=== PATIENT | female | born 1990 | race Asian ===

== ENCOUNTER 2021-11-03 07:07 | Inpatient (IN) ==
--- NOTE | 2021-10-31 14:50 | Anesthesiology Consultation ---
Date of Service October 31, 2021 Assessment & Plan (1) Encounter for pre-operative examination: - check coags am DOS. To anesthesiologist discretion am DOS if additional testing is needed. - COVID screening: Per manager printing on 10/31/2021: Travel screen negative, no kno wn COVID-19 positive contacts or current COVID-19 related symptoms in past 2 weeks. Patient vaccinated. Surgeon arranging preop COVID testing, scheduled 11/01/2021. Awaiting results. Chart Review Chart Review: Acceptable Risk for Surgery and Patient NOT seen in Pre Admission Testing History Surgery Operation Date: 11/03/21 08:50 Proposed Procedures p Section in LD (Delivery of Baby through Abdominal Incision) - Favian Arias MD Height/Weight Height: 5 ft 4.96 in Weight: 85.275 kg Allergies Allergy/AdvReac Type Severity Reaction Status Date / Time No Known Drug Allergies Allergy Unknown Verified 10/31/21 14:08 Medications Home Medications Medication Instructions Recorded Confirmed Last Taken prenat.vits,kartik,rzz-htou-sjqfx 1 tab PO QAM 03/13/21 10/31/21 Unknown omega-3 fatty acids [Fish Oil] 1 tab PO QAM 04/25/21 10/31/21 Unknown calcium carbonate [Tums] 2 tab PO HS 07/03/21 10/31/21 Unknown lactobacillus combination no.4 3 3,000 mmu cells PO QAM 10/31/21 10/31/21 Unknown billion cell capsule (Probiotic) Past Medical History Medical History Fibroid uterus GERD (gastroesophageal reflux disease) Heart palpitations ON OCC-NO CARDIOLOGY Varicella vaccination Past Family History Family History Father Dyslipidemia Hypertension Mother Diabetes Other No family history of allergies No family history of bleeding disorder Denies family history of Ovarian cancer Prostate cancer Hearing loss Heart disease Breast cancer Cancer Stroke Asthma Past Surgical History Surgical History H/O unilateral salpingectomy Social History Smoking Status: Never smoker Do You Dip or Chew Tobacco: No Hx Alcohol Use: Yes Alcohol type: beer and wine Alcohol Intake Frequency Comment: NON Hx Substance Use: No
[~2021-11-03 07:07] MED LIST: ceFAZolin 2,000 MG in SYRINGE 0 ML IV SCH
[2021-11-03] MEDS ORDERED: LACTATED RINGER'S 1,000 ML IV PRN (07:25)
[2021-11-03] MEDS ORDERED: OXYTOCIN 30 UNITS/500 ML BAG IV PRN (07:25)
[2021-11-03] MEDS ORDERED: LACTATED RINGER'S 1,000 ML IV SCH ×3 (07:30→11:30)
[2021-11-03] MEDS ORDERED: CITRIC ACID/SODIUM CITRATE 15 ML UDC PO SCH (08:00)
[2021-11-03 08:25] LABS: Basophils # (auto) 0.02 K/uL (0-0.2); Basophils % (auto) 0.3 %; Eosinophils % (auto) 1.3 %; Hematocrit (blood only) 38.2 % (37-47); Hemoglobin 13.3 g/dL (12.0-16.0); Immature Granulocytes # (auto) 0.05 K/uL (0.00-0.02); Immature Granulocytes % (auto) 0.6 %; Lymphocytes # (auto) 2.18 K/uL (1.2-3.4); Lymphocytes % (auto) 27.8 %; Mean Corpuscular Hemoglobin 32.4 pg (25-34); Mean Corpuscular Hgb Conc 34.8 g/dL (32-36); Mean Corpuscular Volume 93.2 fL (80-100); Mean Platelet Volume 10.7 fL (7.4-10.4); Monocytes # (auto) 0.54 K/uL (0.11-0.59); Monocytes % (auto) 6.9 %; Neutrophils # (auto) 4.94 K/uL (1.4-6.5); Neutrophils % (auto) 63.1 %; Platelet Count 173 K/uL (130-400); RDW Coefficient of Variation 13.8 % (11.5-14.5); RDW Standard Deviation 47.2 fL (36.4-46.3); White Blood Count 7.83 K/uL (4.8-10.8)
[2021-11-03] MEDS ORDERED: SODIUM CHLORIDE 0.9% 250 ML IV PRN (08:27)
--- NOTE | 2021-11-03 08:38 | History & Physical Report ---
Date of Service November 03, 2021 Assessment & Plan (1) Encounter for supervision of normal intrauterine in primigravida, antepartum: Plan: 31yo at 38.3 weeks GA. Presents for scheduled LTCS for hx of prior myomectomy. 1. Fetus: Reactive NST 2. Delivery: Scheduled LTCS 3. Vitals: WNL 4. PPH risk: High risk - Type and cross for 2U (2) H/O myomectomy: Admission and Anticipated Discharge Date Admission Date: November 03, 2021 History of Present Illness Primary Care Provider: Jacy Claire 31yo at 38.3 weeks GA. Presents for scheduled LTCS for hx of prior myomectomy. Consents signed in clinic yesterday. Labs: OB Labs: Blood Type B Positive 04/07/21 Antibody Screen NEGATIVE 04/07/21 Hemoglobin 12.8 g/dL (12.0-16.0) 04/07/21 Hematocrit 37.4 % (37-47) 04/07/21 Mean Corpuscular Volume 92.3 fL (80-100) 04/07/21 Platelet Count 269 K/uL (130-400) 04/07/21 Rubella IgG Antibody Immune (Immune) 04/07/21 Rapid Plasma Reagin Nonreactive (Nonreactive) 04/07/21 Hepatitis B Surface Antigen Neg (Neg) 04/07/21 HIV (1&2) Ab and P24 Ag, 4th Gener Neg (Neg) 04/07/21 Glucose 1 Hour 50 gm Load 116 mg/dl (70-130) 06/02/21 OB Optional Labs: Chlamydia trachomatis RNA NOT DETECTED (NOT DETECTED) 04/06/21 Neisseria gonorrhoeae RNA NOT DETECTED (NOT DETECTED) 04/06/21 Allergies Allergy/AdvReac Type Severity Reaction Status Date / Time No Known Drug Allergies Allergy Unknown Unknown Verified 11/03/21 08:34 Home Medications Medication Instructions Recorded Confirmed Type lactobacillus combination no.4 3 3,000 mmu cells PO QAM 10/31/21 11/02/21 History billion cell capsule (Probiotic) prenat.vits,kartik,fpp-akhu-lnxvf 1 tab PO DAILY 11/03/21 11/03/21 History Patient History Medical History Fibroid uterus GERD (gastroesophageal reflux disease) Heart palpitations ON OCC-NO CARDIOLOGY Varicella vaccination Surgical History (Updated 11/03/21 @ 08:35 by Favian Arias MD) H/O myomectomy H/O unilateral salpingectomy Family History Father Dyslipidemia Hypertension Mother Diabetes Other No family history of allergies No family history of bleeding disorder Denies family history of Ovarian cancer Prostate cancer Hearing loss Heart disease Breast cancer Cancer Stroke Asthma Social History Smoking Status: Never smoker Second Hand Exposure: No; Do You Dip or Chew Tobacco: No; Hx Alcohol Use: Yes Alcohol type: beer and wine Hx Substance Use: No Preferred Language: Maori Communication Ability: Effective Visual Impairment: No Limitations Hearing Ability: Normal Charge Manager Required: No Beliefs That Will Affect Care: None marital status: marital status details: Bela Perrin [phone] Current Living Situation: Spouse Current Living Situation Comment: Lives with spouse, No pets. 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 How many Children do You have: 0 How many Children do You have Comment: Other Information That Helps Us Care for You: No Feels Safe at Home: Yes Safety Concerns: Feels Safe At This Time Assistive Devices: None Assistive Devices Comment: WILL WEAR GLASSES DOS Physical Exam Physical Exam: Portion of exam from prior visit Constitutional: WD/WN, vitals as above well developed, well nourished and + well hydrated; no acute distress Eyes: PERRL, conjunctivae normal, anicteric sclerae Neck: trachea midline, no thyromegaly Respiratory: normal respiratory effort, lungs clear to auscultation no respiratory distress, no labored breathing and no cough Cardiovascular: RRR, no murmur, no edema Heart Sounds: normal S1 and normal S2 Chest (Breasts): normal inspection/palpation of breasts Breast: normal inspection of breasts, normal inspection of axillae, normal palpation of breasts and normal palpation of axillae; no skin thickening, no breast mass, no breast tenderness and no axillary mass Gastrointestinal (Abdomen): normal bowel sounds, soft, nontender, no hepatosplenomegaly Inspection/Auscultation: abdomen not distended and no abdominal edema Musculoskeletal: no cyanosis or clubbing, extremities motor strength 5/5 Head/Neck/Chest: + head abnormal to inspection Psychiatric: A+Ox3, euthymic affect Apperance: appropriately dressed and appropriately groomed Results & Data ([facility]) Vital Signs (Past 12 Hours) Vital Signs Temp Pulse Resp BP 11/03/21 07:31 36.8 C 83 20 110/74 11/03/21 07:26 83 110/74 Coding Level of Care Code None Diagnoses Encounter for supervision of normal intrauterine in primigravida, antepartum Z34.00 H/O myomectomy Z98.890
[2021-11-03] MEDS ORDERED: ONDANSETRON INJ 2 MG/ML 2 ML VIAL ONE (08:39)
[2021-11-03] MEDS ORDERED: ePHEDrine sulfate 50 MG/ML SYR ONE (08:39)
[2021-11-03] MEDS ORDERED: PHENYLEPHRINE 100MCG/ML 5ML SYR ONE (08:39)
[2021-11-03] MEDS ORDERED: fentaNYL citrate 100 MCG/2 ML VIAL ONE (08:39)
[2021-11-03] MEDS ORDERED: MoRPHine SULFATE PF 1 MG/ML 10 ML AMP/VIAL ONE (08:39)
[2021-11-03] MEDS ORDERED: OXYTOCIN 10 UNITS/ML 10ML VIAL ONE (08:39)
[2021-11-03] MEDS ORDERED: ONDANSETRON INJ 2 MG/ML 2 ML VIAL IV PRN (10:21)
[2021-11-03] MEDS ORDERED: LACTATED RINGER'S 500 ML IV PRN (10:21)
[2021-11-03] MEDS ORDERED: NALOXONE HCL 0.4 MG/1 ML VIAL/CARP IV PRN (10:21)
[2021-11-03] MEDS ORDERED: diphenhydrAMINE 50 MG/ML VIAL IV PRN (10:21)
[2021-11-03] MEDS ORDERED: ePHEDrine sulfate 50 MG/ML AMP IV PRN (10:21)
[2021-11-03] MEDS ORDERED: MoRPHine SULFATE PF 1 MG/ML 10 ML AMP/VIAL INT SPINAL ONE (10:21)
[2021-11-03] MEDS ORDERED: NALOXONE HCL 0.08 MG in SYRINGE 1.8 ML IV PRN (10:21)
[2021-11-03] MEDS ORDERED: NALBUPHINE HCL INJ 10 MG/ML AMP IV PRN (10:21)
[2021-11-03] MEDS ORDERED: MoRPHine SULFATE 2 MG/ML CARP IV PRN (10:21)
[2021-11-03] MEDS ORDERED: NALOXONE HCL 1 MG in SODIUM CHLORIDE 0.9% 1000ML 1,000 ML IV PRN (10:21)
[2021-11-03] MEDS ORDERED: SODIUM CHLORIDE 0.9% 1000ML 1,000 ML IV SCH (10:30)
[2021-11-03] MEDS ORDERED: NO NARCOTICS OR SEDATIVES SCH (10:30)
[2021-11-03] MEDS ORDERED: DC INTRASPINAL MORPHINE SCH (10:30)
[2021-11-03] MEDS ORDERED: miSOPROStoL 200 MCG TAB ONE (10:46)
[2021-11-03] MEDS ORDERED: MAGNESIUM HYDROXIDE SUSP 30 ML UDC PO PRN (11:26)
[2021-11-03] MEDS ORDERED: SENNA 8.6 MG TAB PO PRN (11:26)
[2021-11-03] MEDS ORDERED: BENZOCAINE 20% AER SPR 82.5 GM CAN EXT PRN (11:26)
[2021-11-03] MEDS ORDERED: HYDROCORTISONE ACETATE 25 MG SUPP PR PRN (11:26)
[2021-11-03] MEDS ORDERED: DIPHTHERIA/TETANUS/PERTUSSIS 0.5 ML SYR/VIAL IM ONE (11:26)
--- NOTE | 2021-11-03 11:26 | Post Operative Brief Note ---
PG Immediate Post Op with CF Date of Surgery November 03, 2021 Pre & Post Diagnosis Operation Date: 11/03/21 08:50 Pre-Op Diagnosis: History of Myomectomy, Post-Op Diagnosis: Same; Delivery of a live male child at 1033 I identified the patient and participated in the time-out.: Yes Procedure Operation Date: 11/03/21 08:50 Actual Procedures p Section in LD, delivery of live male child at 1033(Bilateral) - Favian Arias MD Surgeon Favian Arias MD [employer] Builder Dr Desouza Estimated Blood Loss 500 Findings Consistent with Post-Op Diagnosis Specimens Specimen Description: A. Placenta-hold B. Cord Blood Drains Kirkpatrick Catheter (placed after spinal, draining clear yellow urine) OB Procedure charges OB Charges 98151
[2021-11-03] MEDS ORDERED: MEPERIDINE HCL 25 MG/ML CARP/VIAL IV PRN (12:21)
--- NOTE | 2021-11-03 13:01 | Operative Report (OR) ---
DATE OF SERVICE: 11/03/2021 PROCEDURE: Primary low transverse section. SURGEON: Favian Arias MD. TRADE SPECIALIST: Sarai Desouza MD. PREOPERATIVE DIAGNOSES: 1. Single intrauterine at 38 weeks gestational age. 2. History of prior myomectomy. POSTOPERATIVE DIAGNOSES: 1. Single intrauterine at 38 weeks gestational age. 2. History of prior myomectomy. 3. Status post procedure. ESTIMATED BLOOD LOSS: 500 mL. DRAINS: Kirkpatrick catheter. FLUIDS: Continuous lactated Ringer. URINE OUTPUT: Per Kirkpatrick catheter. COMPLICATIONS: None. FINDINGS: Viable male with weight and Apgars pending. INDICATIONS: Crystal is a 31-year-old , admitted at 38 weeks 3 days gestational age for primary low transverse section performed for prior myomectomy. Consents were reviewed and signed in clinic. Reactive NST noted prior to proceeding to the OR. DESCRIPTION OF PROCEDURE: The patient was taken to the operating room after consents were assured. Upon presentation, she was properly identified. Spinal anesthesia was obtained without difficulty. The patient was then prepped and draped in normal sterile fashion. Preprocedural timeout was perform ed, after which a Pfannenstiel incision was made with a knife. This was carried down to the underlyi ng fascia with the Bovie. The fascia was then nicked at the midline with a knife and extended latera lly in each direction with pickups and Gore scissors. The superior aspect of the fascia was then gra sped with Kochers x2, elevated off the underlying rectus muscles using blunt dissection. The inferio r aspect of the fascia was grasped with Kochers x2, elevated off the underlying rectus muscles using blunt dissection. The midline was then entered bluntly and placed on stretch to provide adequate reshma m for delivery. Bladder blade was inserted and a bladder flap created. A low transverse uterine incision was then made with a knife. This was extended bluntly to provide a dequate room for delivery and the membranes were ruptured with an Allis clamp. The head of the neona te was noted to be in cephalic position, delivered through the hysterotomy, body and shoulders follow ed. was noted to be vigorous upon delivery and a 30-second delayed cord clamping was initiat ed. Cord was then double clamped and cut. taken to waiting nursery staff for evaluation. C ord blood was obtained. Attention was then turned to delivery of the placenta, which was delivered i ntact, 3-vessel cord, gentle cord traction. The uterus was then exteriorized and several passes were made to remove any remaining membranes with a dry lap. The hysterotomy was then reapproximated with 0 Vicryl in continuous running locked stitch . A second imbricating layer of 0 Vicryl was then performed. Several [id number] were used to achieve full hemostasis. Posterior cul-de-sac was then cleaned of clots and debris. Uterus returned to maternal abdomen. Right and left pericolic gutters were cleaned of clots and debris and hysterot meghan reinspected and noted to be hemostatic. The subcutaneous muscle and fascial layers were inspected and noted to be hemostatic. The fascial la yers were reapproximated with 0 Vicryl continuous running stitch. The subcutaneous layers were reapp roximated with 2-0 plain in 2 layers. The skin was reapproximated with 3-0 Vicryl on a Reese needle. Needle, sponge, and instrument counts were correct at the completion of the case. Both mother and were stable in the immediate post-delivery period. 800 mcg of Cytotec was placed per rectum prior to leaving the OR. Job ID: [id number]
[2021-11-03] MEDS: KETOROLAC 30 MG/ML VIAL IV PRN ×2 (14:38→22:11)
[2021-11-03] MEDS: SIMETHICONE 80 MG CHEW PO SCH ×3 (15:01→19:53)
[2021-11-03] MEDS ORDERED: miSOPROStoL 200 MCG TAB PR ONE (15:12)
--- NOTE | 2021-11-03 16:17 | Anesthesiology Progress Note ---
Date of Service November 03, 2021 Anesthesia Post Procedure Vital Signs Vital Signs: Temp Pulse Resp BP Pulse Ox 11/03/21 15:02 111 H 112/67 94 11/03/21 14:59 110 H 94 11/03/21 14:55 114 H 94 11/03/21 14:54 112 H 93 11/03/21 14:50 124 H 94 11/03/21 14:49 118 H 94 11/03/21 14:44 119 H 94 11/03/21 14:39 114 H 94 11/03/21 14:38 118 H 94 11/03/21 14:34 116 H 93 11/03/21 14:29 121 H 94 11/03/21 14:27 119 H 94 11/03/21 14:24 118 H 93 11/03/21 14:19 115 H 94 11/03/21 14:14 119 H 93 11/03/21 14:09 116 H 94 11/03/21 14:04 116 H 95 11/03/21 13:59 119 H 95 11/03/21 13:54 122 H 95 11/03/21 13:53 121 H 116/67 11/03/21 13:49 120 H 94 11/03/21 13:47 36.7 C 20 11/03/21 13:46 117 H 94 11/03/21 13:44 119 H 95 11/03/21 13:43 117 H 115/64 11/03/21 13:40 119 H 94 11/03/21 13:39 125 H 95 11/03/21 13:35 119 H 94 11/03/21 13:34 118 H 113/55 L 95 11/03/21 13:29 123 H 96 11/03/21 13:24 120 H 20 132/63 100 11/03/21 13:18 116 H 96 11/03/21 13:15 118 H 91 11/03/21 13:13 119 H 119/68 97 11/03/21 13:08 115 H 98 11/03/21 13:03 117 H 127/71 97 11/03/21 12:58 123 H 97 11/03/21 12:54 20 100 11/03/21 12:53 107 H 125/71 98 11/03/21 12:48 112 H 98 11/03/21 12:47 20 99 11/03/21 12:44 110 H 129/69 11/03/21 12:43 108 H 99 11/03/21 12:38 112 H 98 11/03/21 12:33 115 H 147/69 H 97 11/03/21 12:31 113 H 150/82 H 11/03/21 12:28 122 H 98 11/03/21 12:24 59 L 164/116 H 11/03/21 12:23 116 H 98 11/03/21 12:18 119 H 98 11/03/21 12:15 129 H 86 L 11/03/21 12:14 20 99 11/03/21 12:13 120 H 98 11/03/21 12:09 120 H 88 L 11/03/21 12:08 119 H 99 11/03/21 12:04 20 100 11/03/21 12:03 120 H 99 11/03/21 12:02 115 H 168/82 H 11/03/21 11:59 117 H 92 11/03/21 11:58 112 H 98 11/03/21 11:54 20 100 11/03/21 11:53 117 H 100 11/03/21 11:48 116 H 99 11/03/21 11:46 108 H 91 11/03/21 11:44 20 99 11/03/21 11:43 106 H 135/70 100 11/03/21 11:38 106 H 100 11/03/21 11:34 20 100 11/03/21 11:33 107 H 129/66 99 11/03/21 11:28 108 H 98 11/03/21 11:24 36.4 C L 104 H 20 136/74 97 11/03/21 11:23 101 H 97 11/03/21 07:31 36.8 C 83 20 110/74 11/03/21 07:26 83 110/74 Notes Mental Status: alert / awake / arousable Patient Amnestic to Procedure: No Nausea / Vomiting: adequately controlled Pain: adequately controlled Airway Patency, RR, SpO2: stable & adequate BP & HR: stable & adequate Hydration State: stable & adequate Neuraxial Anesthesia: was administered and sensory block is resolving Anesthetic Complications: no major complications apparent and Pt Satisfied with anesthetic care
[2021-11-03] MEDS: OXYTOCIN 20 UNITS in LACTATED RINGER'S 1,000 ML IV SCH (16:23)
[2021-11-03] MEDS: DOCUSATE SODIUM 100 MG CAP PO SCH (19:53)
[2021-11-04] MEDS: OXYTOCIN 20 UNITS in LACTATED RINGER'S 1,000 ML IV SCH
[2021-11-04] MEDS ORDERED: KETOROLAC 30 MG/ML VIAL IV PRN (04:21)
[2021-11-04] MEDS ORDERED: PROMETHAZINE HCL 25 MG in SODIUM CHLORIDE 0.9% 50 ML IV PRN (04:21)
[2021-11-04] MEDS ORDERED: diphenhydrAMINE Capsule 25 MG CAP PO PRN (04:21)
[2021-11-04] MEDS ORDERED: ONDANSETRON INJ 2 MG/ML 2 ML VIAL IV PRN (04:21)
[2021-11-04] MEDS ORDERED: diphenhydrAMINE 50 MG/ML VIAL IV PRN (04:21)
[2021-11-04] MEDS: oxyCODONE/ACETAMINOPHEN 5mg/325mg TAB PO PRN ×6 (04:53→21:36)
[2021-11-04] MEDS ORDERED: ceFAZolin 2000MG 2,000 MG/15 ML SYR IV SCH (06:00)
[2021-11-04 07:36] LABS: Basophils # (auto) 0.03 K/uL (0-0.2); Basophils % (auto) 0.3 %; Eosinophils # (auto) 0.05 K/uL (0-0.5); Eosinophils % (auto) 0.4 %; Hematocrit (blood only) 35.4 % (37-47); Hemoglobin 12.3 g/dL (12.0-16.0); Immature Granulocytes # (auto) 0.03 K/uL (0.00-0.02); Immature Granulocytes % (auto) 0.3 %; Lymphocytes # (auto) 1.56 K/uL (1.2-3.4); Lymphocytes % (auto) 13.5 %; Mean Corpuscular Hemoglobin 32.5 pg (25-34); Mean Corpuscular Hgb Conc 34.7 g/dL (32-36); Mean Corpuscular Volume 93.7 fL (80-100); Mean Platelet Volume 10.5 fL (7.4-10.4); Monocytes % (auto) 6.1 %; Neutrophils % (auto) 79.4 %; Platelet Count 136 K/uL (130-400); RDW Coefficient of Variation 13.6 % (11.5-14.5); RDW Standard Deviation 46.7 fL (36.4-46.3); Red Blood Count 3.78 M/uL (4.2-5.4); White Blood Count 11.57 K/uL (4.8-10.8)
--- NOTE | 2021-11-04 08:46 | Obstetrical Progress Note ---
Date of Service November 04, 2021 Assessment & Plan (1) Encounter for care and examination after delivery: Day 1 s/p LTCS. Doing well. routine care Subjective Ambulation: ambulating normally Voiding: no voiding problems Passing Gas:: Yes Diet Tolerance:: regular diet Lochia:: Moderate Feeding Type:: breast feeding Physical Exam Constitutional WD/WN, vitals as above Respiratory normal respiratory effort; no respiratory distress and no labored breathing Gastrointestinal (Abdomen) Inspection/Auscultation: abdomen normal to inspection; abdomen not distended Percussion/Palpation: abdomen soft; abdomen nontender, no guarding and abdomen not rigid Incision C/D/I Genitourinary OB Exam Abdomen: + fundal height Fundus: + firm and + relation to umbilicus (Below); not tender or not boggy Results & Data ([facility]) Vital Signs (Past 12 Hours) Vital Signs Temp Pulse Resp BP Pulse Ox 11/04/21 03:27 36.9 C 80 16 108/70 96 11/04/21 02:00 16 98 11/04/21 01:00 16 99 11/04/21 00:22 16 97 11/03/21 23:06 37.2 C 86 16 104/68 94 11/03/21 23:00 16 96 11/03/21 22:00 16 98 11/03/21 21:00 16 97
[2021-11-04] MEDS: PRENATAL VITAMIN 1 TAB PO SCH (09:04)
[2021-11-04] MEDS: IBUPROFEN 600 MG TAB PO PRN ×4 (09:05→21:38)
[2021-11-04] MEDS: DOCUSATE SODIUM 100 MG CAP PO SCH (09:05)
[2021-11-04] MEDS: SIMETHICONE 80 MG CHEW PO SCH ×4 (09:05→21:41)
[2021-11-04] MEDS: FERROUS SULFATE 325 MG TAB PO SCH (09:05)
[2021-11-04] MEDS ORDERED: bisacodyL 5 MG TABEC PO SCH (20:00)
[2021-11-05] MEDS: IBUPROFEN 600 MG TAB PO PRN ×5 (02:13→20:36)
[2021-11-05] MEDS: oxyCODONE/ACETAMINOPHEN 5mg/325mg TAB PO PRN ×5 (02:14→20:36)
--- NOTE | 2021-11-05 06:36 | Obstetrical Progress Note ---
Date of Service November 05, 2021 Assessment & Plan (1) Encounter for care and examination after delivery: stable, routine care. breast/rhpos/ri hgb pending. Day #:: 2 Subjective Ambulation: ambulating normally Voiding: no voiding problems Passing Gas:: Yes Diet Tolerance:: regular diet Lochia:: Small Feeding Type:: breast feeding pain meds helping her, denies issues with pain. she notes working on breast feeding, milk not in yet. Constitutional: + as per Subjective / HPI Physical Exam Constitutional WD/WN, vitals as above Respiratory normal respiratory effort, lungs clear to auscultation Cardiovascular Rate/Rhythm: regular rate and regular rhythm Gastrointestinal (Abdomen) Inspection/Auscultation: abdomen normal to inspection Percussion/Palpation: abdomen soft Fundus firm at umbilicus Musculoskeletal nt calves no edema Neurologic grossly normal Psychiatric A+Ox3, euthymic affect Results & Data ([facility]) Vital Signs (Past 12 Hours) Vital Signs Temp Pulse Resp BP Pulse Ox 11/05/21 05:00 98.8 F 72 18 117/68 98 11/04/21 23:45 98.2 F 74 20 112/67 98 11/04/21 19:00 98.8 F 72 18 106/70 98
[2021-11-05 07:15] LABS: Hematocrit (blood only) 36.3 % (37-47); Hemoglobin 12.4 g/dL (12.0-16.0)
[2021-11-05] MEDS: PRENATAL VITAMIN 1 TAB PO SCH (08:22)
[2021-11-05] MEDS: FERROUS SULFATE 325 MG TAB PO SCH (08:22)
[2021-11-05] MEDS: SIMETHICONE 80 MG CHEW PO SCH ×4 (08:22→20:35)
[2021-11-05] MEDS: DOCUSATE SODIUM 100 MG CAP PO SCH ×2 (08:22→20:36)
[2021-11-05] MEDS ORDERED: bisacodyL 10 MG SUPP PR PRN (11:26)
[2021-11-06] MEDS: IBUPROFEN 600 MG TAB PO PRN ×3 (00:46→11:27)
[2021-11-06] MEDS: oxyCODONE/ACETAMINOPHEN 5mg/325mg TAB PO PRN ×3 (00:46→11:28)
--- NOTE | 2021-11-06 06:15 | Obstetrical Progress Note ---
Date of Service <Jeanie OswaldoDO - Last Filed: 11/06/21 06:48> November 06, 2021 Assessment & Plan <Jeanie Chacon DO - Last Filed: 11/06/21 06:48> (1) Encounter for care and examination after delivery: 31 yo post op day3 from c/s with hx myomectomy, doing well. -Continue routine post care. -vital signs reviewed and WNL (Tmax 36.9) -Blood Type B+, GBS-, Rubella immune -Encourage ambulation, monitor and control pain with Motrin, tylenol PRN, resume regular diet, monitor lochia -encourage breast feeding -hemoglobin 12.4 Day #:: 3 <Sarai Desouza MD, FACOG - Last Filed: 11/06/21 07:12> (1) Encounter for care and examination after delivery: Subjective <Jeaniechristopher Chacon DO - Last Filed: 11/06/21 06:48> Ambulation: ambulating normally Voiding: no voiding problems Passing Gas:: Yes Diet Tolerance:: regular diet Lochia:: Small Feeding Type:: breast feeding Current Pain Level(1-10): 4 Review of Systems Denies fever, chills, sweats Denies shortness of breath, difficulty breathing, chest pain, palpitations, chest pressure. Denies breast pain. Denies dysuria. Denies headache or changes in vision. Physical Exam <Jeanie OswaldoDO - Last Filed: 11/06/21 06:48> General: Alert, oriented. No acute distress. Cardiac: Regular rate and rhythm, no murmurs/rubs/gallops. Respiratory: Clear to auscultation bilaterally a/p, no wheezes/rales/rhonchi. No increased work of breathing. Symmetrical chest rise. No respiratory distress. Abdomen: Soft, tender on palpation over uterus, nondistended. Bowel sounds present. Uterus: Uterine fundus firm, palpable at umbilicus. Surgical scar clean and healing well. Lower Extremities: swelling in b/l LE noted per patient, nonpitting. No deep calf pain. Frida's negative bilaterally. Results & Data ([facility]) <Jeanie Chacon DO - Last Filed: 11/06/21 06:48> Vital Signs (Past 12 Hours) Vital Signs Temp Pulse Resp BP Pulse Ox 04/10/22 23:45 36.9 C 71 16 127/82 96 <Sarai Desouza MD, FACOG - Last Filed: 11/06/21 07:12> Co-Signing Physician Notes Resident Physician Supervision Note: I was present with Dr. Chacon during the history and exam. I discussed the case with the resident and agree with the findings and plan as documented in the note. Any exceptions or clarifications are listed here: Patient doing well, said baby cried alot overnight trying to poop and then felt better. she is feeling well and wants to go home. eating, voiding, passing gas and ambulating. using pain meds. abd soft appropriately tender fundus, firm 2 down, incision c/d/i. ext nt calves. some edema bilat. pod#3 s/p primary LTCS, doing well, ok to go home, instructions reviewed, has 6wk pp check. Documented By: Sarai Desouza MD, FACOG Resident Activity Tracking <Jeanie Chacon DO - Last Filed: 11/06/21 06:48> Resident Involvement: Resident Care Provided Care Provided: Adult Hospital Medicine and OB Delivery
[2021-11-06] MEDS: PRENATAL VITAMIN 1 TAB PO SCH (07:23)
[2021-11-06] MEDS: SIMETHICONE 80 MG CHEW PO SCH (07:23)
[2021-11-06] MEDS: FERROUS SULFATE 325 MG TAB PO SCH (07:23)
[2021-11-06] MEDS: DOCUSATE SODIUM 100 MG CAP PO SCH (07:23)
== END 2021-11-06 13:55 | disposition home or self-care (01) | DRG 788 ==
LOC: 4S1 07:07 → EDSTATUS 08:50 → 4E1 15:16